=== PATIENT | female | born 1995 | race American Indian/Alaskan Native ===

== ENCOUNTER 2018-07-23 17:16 | Inpatient (IN) | payer OTHER ==
[2018-07-23] MEDS ORDERED: BRETHINE SUB-Q PRN (18:18)
[2018-07-23] MEDS ORDERED: SUBLIMAZE IV PRN (18:18)
[2018-07-23] MEDS ORDERED: MINERAL OIL PO PRN (18:18)
[2018-07-23] MEDS ORDERED: XYLOCAINE 2% INFILTRATI ONE (18:18)
[2018-07-23] MEDS ORDERED: BRETHINE IVP PRN (18:18)
[2018-07-23] MEDS ORDERED: STADOL IV PRN (18:18)
[2018-07-23] MEDS ORDERED: LACTATED RINGERS 1,000 ML IV SCH (19:00)
[2018-07-23] MEDS ORDERED: PITOCin/NS 20 UNIT/1000ML DRIP 20 UNITS/1,000 ML BAG IV SCH (19:00)
[2018-07-23] MEDS ORDERED: CERVIDIL VG ONE (19:00)
--- NOTE | 2018-07-23 19:07 | History and Physical Report ---
History of Present Illness Date of examination: 07/23/18 Date of admission: 07/23/18 17:16 Chief complaint: Sent from the clinic for induction of labor History of present illness: 23yo G 1 P 0 at 38 weeks 0 day here from the clinic for IOL secondary to preeclampsia. She has been having intermittent headaches but denies visual disturbances or RUQ pain. She is a [employer] patient who initiated care at 14 weeks gestation. 24hr urine protein done 07/19/18 was 380. Labs: Opos, Antibody Screen neg, Pap smear normal, R NI, VDRL NR, HHsAg neg, HIV neg, MSAFP neg, Diabetes Screen 122, GC/CT neg, GBS neg. Past History Past Medical History: no pertinent history Past Surgical History: no surgical history Family/Genetic History: diabetes Social history: single, lives with family, full code. denies: smoking, alcohol abuse, prescription drug abuse, IV drug use - Obstetrical History Expected Date of Delivery: 08/06/18 Actual Gestation: 38 Week(s) 0 Day(s) : 1 Para: 0 Hx # Term Pregnancies: 0 Number of Pregnancies: 0 Spontaneous Abortions: 0 Induced : 0 Number of Living Children: 0 Medications and Allergies Allergies Allergy/AdvReac Type Severity Reaction Status Date / Time No Known Allergies Allergy Unverified 07/23/18 17:59 Active Meds: Active Medications Butorphanol Tartrate (Stadol) 2 mg IV Q2H PRN PRN Reason: Pain , Severe (7-10) Dinoprostone (Cervidil) 10 mg VG ONCE ONE Stop: 07/23/18 19:01 Ephedrine Sulfate (Ephedrine Sulfate) 10 mg IV Q2M PRN PRN Reason: Hypotension Fentanyl (Sublimaze) 100 mcg IV Q2H PRN PRN Reason: Labor Pain Lactated Ringer's (Lactated Ringers) 1,000 mls @ 125 mls/hr IV DIRECT RAUDEL Oxytocin/Sodium Chloride (Pitocin/Ns 20 Unit/1000ml Drip) 20 units in 1,000 mls @ 125 mls/hr IV DIRECT RAUDEL Mineral Oil (Mineral Oil) 30 ml PO QHS PRN PRN Reason: Constipation Terbutaline Sulfate (Brethine) 0.25 mg SUB-Q ONCE PRN PRN Reason: Hyperstimulation/Hypertonicity Terbutaline Sulfate (Brethine) 0.25 mg IVP ONCE PRN PRN Reason: Hyperstimulation/Hypertonicity Review of Systems All systems: negative - Vital Signs Vital signs: Vital Signs Pulse BP 71 135/87 07/23/18 18:25 07/23/18 18:25 Temp Pulse Resp BP Pulse Ox 71 135/87 07/23/18 18:25 07/23/18 18:25 - Obstetrical FHR: auscultation normal, category 1 FHR comments: baseline 130, moderate variability, 15x15 accels, no decels Uterine Contraction Monitor Mode: External Cervical Dilatation: 2 Cervical Effacement Percentage: 70 station: -3 Uterine Contraction Pattern: Absent Results All other labs normal. Assessment and Plan - Patient Problems (1) 38 weeks gestation of Current Visit: Yes Status: Acute (2) Pre-eclampsia in third trimester Current Visit: Yes Status: Acute Plan to address problem: Asymptomatic PIH labs ordered Start antihypensive therapy: Labetalol 100mg PO BID (3) Encounter for induction of labor Current Visit: Yes Status: Acute Plan to address problem: Admit to L&D with routine labor orders Cervidil for cervical ripening Anticipate vaginal delivery
[2018-07-23 19:25] LABS: Hematocrit 35.2 % (30.3-42.9); Hemoglobin 11.9 gm/dl (10.1-14.3); Mean Corpuscular HGB Conc 34 % (30-34); Mean Corpuscular Volume 90 fl (79-97); Platelet Count 110 K/mm3 (140-440); Red Blood Count 3.93 M/mm3 (3.65-5.03); Red Cell Distribution Width 14.4 % (13.2-15.2)
[2018-07-23 19:51] LABS: Uric Acid 6.9 mg/dL (3.5-7.6)
[2018-07-23 20:54] LABS: Bacteria,Urine 4+ /HPF (Negative); Bilirubin,Urine NEG (Negative); Blood,Urine SM (Negative); Color,Urine Yellow (Yellow); Mucus,Urine FEW /HPF; Urobilinogen,Urine < 2.0 mg/dL (<2.0)
[2018-07-23] MEDS ORDERED: TYLENOL PO PRN (21:30)
[2018-07-23] MEDS ORDERED: TYLENOL ONE (21:31)
[2018-07-24] MEDS: NORMODYNE PO SCH ×2 (00:24→10:37)
[2018-07-24] MEDS ORDERED: AMBIEN PO PRN ×2 (00:49→01:07)
[2018-07-24] MEDS ORDERED: AMBIEN ONE (01:02)
--- NOTE | 2018-07-24 03:29 | Event Note ---
Date: 07/24/18 S: Pt up to BR. Tearful with c/o UCs. s/p Ambien. O: FHR - baseline 130, moderate variability, 15x15 accels, no decels Irregular uterine ctxs noted SVE 2/80/-2/vtx/I Last BP 136/[address] A: IUP @ 38w1d Category I FHR IOL secondary to Pre-eclampsia without severe features P: Continue current management Stadol administered for pain by RN Anticipate vaginal delivery
[2018-07-24] MEDS ORDERED: PITOCin/NS 30 UNIT/500ML 30,000 MILLIUNITS/500 ML BAG IV ONE (10:05)
--- NOTE | 2018-07-24 16:20 | Event Note ---
Date: 07/24/18 (0900) A: [age] yo @ 38.1 wks gestation 2. IOL secondary to Preeclampsia 3. S/P cervidil @ 0745 P: 1. Continue current routine PP orders 2. Eat breakfast/ shower 3. Pitocin augmentation as tolerated 4. Epidural as desired 5. Anticipate S: "Feeling ok, some discomfort with ctxs. Happy to have something to eat O: 1. VSS 2. Category 1 FHTs 3. Irregular ctx pattern 4. SVE: /-2
[2018-07-24] MEDS ORDERED: LANSINOH TP PRN (16:28)
[2018-07-24] MEDS ORDERED: PHENERGAN PO PRN (16:28)
[2018-07-24] MEDS ORDERED: TUCKS PAD TP PRN (16:28)
[2018-07-24] MEDS ORDERED: DULCOLAX PR PRN (16:28)
[2018-07-24] MEDS ORDERED: ZOFRAN IV PRN (16:28)
[2018-07-24] MEDS ORDERED: BENADRYL PO PRN (16:28)
[2018-07-24] MEDS ORDERED: MILK OF MAGNESIA PO PRN (16:28)
--- NOTE | 2018-07-24 16:43 | Procedure Note ---
OB Delivery Note - Delivery Date of Delivery: 07/24/18 (1542) Surgeon: BRITNEY COLON (CNM) Estimated blood loss: 200cc - Vaginal Delivery presentation: vertex Delivery position: OA Intrapartum events: none Delivery induction: cervidil Delivery augmentation: pitocin Delivery monitor: external FHT, external uterine Route of delivery: Delivery placenta: spontaneous Delivery cord: 3 umbilical vessels Episiotomy: none Delivery laceration: other (Right inner labial laceration without repair, hemostasis maintained) Anesthesia: none Delivery comments: Received call that pt was complete and ready to push at 1537. Walked into room at 1543 to find baby delivered and in warmer with NICU team being assessed. Placenta remains intact, delivered spontaneously at 1549 without difficulty, poon, disposed per hospital policy. Right inner labial laceration noted, no repair hemostasis maintained. Mother and baby stable and safe. - A at 1 minute: 7 at 5 minutes: 9 Gender: Female (Weight: 5lbs 4 ozs (2391 gms) 17 inches)
[2018-07-24] MEDS ORDERED: SODIUM CHLORIDE FLUSH SYRINGE 10 ML IV NR (17:00)
[2018-07-24] MEDS: IBUPROFEN PO SCH (17:13)
[2018-07-24] MEDS ORDERED: NORMODYNE IV ONE (18:02)
[2018-07-24] MEDS: NORCO 5/325 PO PRN (21:56)
[2018-07-25] MEDS: IBUPROFEN PO SCH ×5 (00:37→23:22)
[2018-07-25 04:45] LABS: Hematocrit 27.5 % (30.3-42.9); Hemoglobin 9.4 gm/dl (10.1-14.3)
[2018-07-25] MEDS: NORCO 5/325 PO PRN (05:49)
[2018-07-25] MEDS ORDERED: BOOSTRIX IM ONE (06:00)
[2018-07-25] MEDS: PRENATAL VITAMIN PO SCH (11:45)
--- NOTE | 2018-07-25 12:11 | Progress Note ---
Assessment and Plan A: PP Day #1 Asymptomatic Anemia Difficulty Preeclampsia P: Follow Routine orders Consult Ferrous Sulfate 325mg PO BID Monitor BPs Subjective - Subjective Date of service: 07/25/18 Patient reports: appetite normal, voiding normally, pain well controlled, flatus, ambulating normally, other (Denies all s/s of PIH; Received one dose of Labetolol shortly after delivery) [employer]: doing well, bottle feeding (and ) Objective - Vital Signs Latest vital signs: Vital Signs Temp Pulse Resp BP BP Pulse Ox 07/25/18 11:45 16 07/25/18 09:23 98.2 F 71 18 127/77 93 07/25/18 00:00 98.4 F 77 16 102/63 07/24/18 22:02 98.7 F 85 18 145/87 98 07/24/18 19:20 98.5 F 82 16 135/78 07/24/18 18:44 84 131/84 07/24/18 18:34 91 H 140/83 07/24/18 18:29 78 146/95 07/24/18 18:24 79 144/93 07/24/18 18:14 80 148/94 07/24/18 18:04 83 155/95 07/24/18 17:54 81 151/88 07/24/18 17:44 86 169/99 07/24/18 17:36 75 157/95 07/24/18 17:23 97.4 F L 80 16 170/85 07/24/18 17:00 97.8 F 18 07/24/18 16:00 99 H 140/93 07/24/18 14:39 87 160/96 07/24/18 14:09 76 136/90 07/24/18 13:39 75 143/81 07/24/18 13:10 80 138/90 07/24/18 12:39 77 137/73 07/24/18 12:09 84 136/81 Intake and Output 07/24/18 07/25/18 07/25/18 22:59 06:59 14:59 Intake Total 300 480 Balance 300 480 Intake: Oral 120 Intake, Free Water 300 360 Other: Total, Intake Amount 120 # Voids Void 1 Estimated Blood Loss 200 - Exam Breasts: Present: normal Cardiovascular: Present: Regular rate Lungs: Present: Clear to auscultation, Normal air movement Abdomen: Present: normal appearance, soft, normal bowel sounds Uterus: Present: normal, firm, fundal height below umbilicus Extremities: Present: normal - Labs Labs: Abnormal lab results 07/25/18 Range/Units 03:53 Hgb 9.4 L (10.1-14.3) gm/dl Hct 27.5 L D (30.3-42.9) %
[2018-07-26] MEDS: IBUPROFEN PO SCH ×3 (06:25→23:11)
[2018-07-26] MEDS: PRENATAL VITAMIN PO SCH (10:00)
--- NOTE | 2018-07-26 10:55 | Progress Note ---
Assessment and Plan A: PP Day #2 s/p NSVD07/24/18 Asymptomatic Anemia /bottlefeeding Infant under Steven-lights VSS P: Follow Routine orders Ferrous Sulfate 325mg PO BID Discharge home this evening pending PEDS Subjective - Subjective Date of service: 07/26/18 Principal diagnosis: PPD#2 s/p Patient reports: appetite normal, voiding normally, pain well controlled, flatus, ambulating normally, no bowel movement : other (Breast/Bottle. in room under Steven-lights) Objective - Vital Signs Latest vital signs: Vital Signs Temp Pulse Resp BP BP Pulse Ox 07/26/18 08:15 98.5 F 72 18 129/73 98 07/26/18 04:20 98.5 F 67 18 131/87 07/26/18 01:10 97.3 F L 75 20 132/85 97 07/25/18 17:22 16 07/25/18 16:06 98.0 F 76 18 135/82 99 07/25/18 12:41 98.2 F 67 18 146/93 98 07/25/18 11:45 16 Intake and Output 07/25/18 07/26/18 07/26/18 23:59 07:59 15:59 Intake Total 720 480 Output Total 800 Balance -80 480 Intake: Oral 360 Intake, Free Water 360 480 Output: Urine 800 Void 800 Other: Total, Intake Amount 360 Total, Output Amount 800 # Voids Void 1 - Exam Breasts: Present: normal, Cardiovascular: Present: Regular rate, Normal S1, Normal S2, No murmurs Lungs: Present: Clear to auscultation, Normal air movement Abdomen: Present: normal appearance, normal bowel sounds. Absent: distention Vulva: both: normal Uterus: Present: firm, fundal height below umbilicus (-1) Extremities: Present: normal Deep Tendon Reflex Grade: Normal +2
--- NOTE | 2018-07-26 10:56 | Discharge Summary ---
Providers - Providers Date of Admission: 07/23/18 17:16 Date of discharge: 07/26/18 Attending physician: LINSEY CERDA MD Primary care physician: LINSEY CERDA MD Hospitalization Reason for admission: induction of labor (Preeclampsia), IUP at term Delivery: Procedure details: See H&P and delivery note Episiotomy: none Other procedures: none complications: none Discharge diagnosis: IUP at term delivered baby: female (Under Steven-lights, Discharge home pending PEDS) Condition at discharge: Good Disposition: DC-01 TO HOME OR SELFCARE Plan - Provider Discharge Summary Activity: routine, no sex for 6 weeks, no heavy lifting 4 weeks, no strenuous exercise Diet: routine Instructions: routine Additional instructions: [] Smoking cessation referral if applicable(refer to patient education folder for contact #) [] Refer to [facility] Booklet Call your doctor immediately for: * Fever > 100.5 * Heavy vaginal bleeding ( >1 pad per hour) * Severe persistent headache * Shortness of breath * Reddened, hot, painful area to leg or breast * Drainage or odor from incision. * Keep incision clean and dry at all times and follow doctor's instructions regarding bathing/showering - Follow up plan Follow up: LINSEY CERDA MD [Primary Care Provider] - 6 Weeks
[2018-07-26] MEDS: NORCO 5/325 PO PRN (19:48)
[2018-07-27] MEDS: IBUPROFEN PO SCH (05:34)
[2018-07-27 09:01] VITALS: BP 137/93
[2018-07-27] MEDS: PRENATAL VITAMIN PO SCH (10:33)
[2018-07-27] MEDS ORDERED: M-M-R II VACCINE SUB-Q ONE (17:14)
== END 2018-07-27 18:40 | disposition home or self-care (01) | DRG 774 ==
LOC: LD 17:16 → OB 07-24 19:23
PROVIDERS: ADMIT Obstetrics & Gynecology; ATTEND Obstetrics & Gynecology
PROC: 10E0XZZ Delivery of Products of Conception, External Approach (ICD-10-PCS; principal; 2018-07-24)
PROC: 3E0P7VZ Introduction of Hormone into Female Reproductive, Via Natural or Artificial Opening (ICD-10-PCS; 2018-07-24)
PROC: 3E0234Z Introduction of Serum, Toxoid and Vaccine into Muscle, Percutaneous Approach (ICD-10-PCS; 2018-07-25)
DX: O14.94 Unspecified pre-eclampsia, complicating childbirth (principal); Z3A.38 38 weeks gestation of pregnancy; Z37.0 Single live birth; Z23 Encounter for immunization; Z83.3 Family history of diabetes mellitus; O70.0 First degree perineal laceration during delivery; O90.81 Anemia of the puerperium; D64.9 Anemia, unspecified
CPT/HCPCS: 36415; 59200; 81001; 83615; 84450; 84460; 84550; 85014; 85018; 85027; 86592; 86850; 86900; 86901; 90707; 90715; G0378; J0595; J2590; J3010; J7120